=== PATIENT | male | born 1980 | race Caucasian/White ===

== ENCOUNTER → 2016-04-21 | Outpatient (CLI) | payer MEDICAID | LOC: VM.CT 10:30 | PROVIDERS: ATTEND Physician Assistant Medical | DX: S06.0X0A Concussion without loss of consciousness, initial encounter (principal); J34.89 Other specified disorders of nose and nasal sinuses; X58.XXXA Exposure to other specified factors, initial encounter | CPT/HCPCS: 70450 ==

== ENCOUNTER 2021-05-22 07:57 | Emergency (ER) | payer MEDICAID, OTHER ==
[2021-05-22] MEDS ORDERED: Amoxicillin/Clavulanate K 875-125 MG Tab PO ONE (08:28)
[2021-05-22] MEDS ORDERED: predniSONE 20 MG Tab PO STA (08:29)
== END 2021-05-22 08:40 | disposition home or self-care (01) ==
LOC: VM.ED 07:57
DX: J02.9 Acute pharyngitis, unspecified (principal); J01.90 Acute sinusitis, unspecified
CPT/HCPCS: 99283; A9270; J7512

== ENCOUNTER 2023-11-22 14:50 | Emergency (ER) | payer BC | END 2023-11-22 15:32 | disposition home or self-care (01) | LOC: MERGE 14:50 → VM.ED 14:50 → EDBD 14:50 → VM.ED 15:32 | DX: R04.0 Epistaxis (principal) | CPT/HCPCS: 99283 ==